=== PATIENT | male | born 1985 | race Caucasian/White ===

== ENCOUNTER 2022-07-18 09:48 | Emergency (ER) | payer OTHER ==
[~2022-07-18] VITALS: Ht 172.7 cm; Wt 77.1 kg
[~2022-07-18 09:48] MED LIST: CLARITIN10 M2
[2022-07-18 14:03] VITALS: BP 135/88
== END 2022-07-18 11:10 | disposition home or self-care (01) ==
LOC: ED 09:48
DX: S63.91XA Sprain of unspecified part of right wrist and hand, initial encounter (principal); F17.200 Nicotine dependence, unspecified, uncomplicated; W18.09XA Striking against other object with subsequent fall, initial encounter; Z88.0 Allergy status to penicillin
CPT/HCPCS: 73130; A9270